=== PATIENT | male | born 1985 | race Caucasian/White ===

== ENCOUNTER 2022-01-21 09:19 | Outpatient (RCR) | payer OTHER, SELFPAY ==
[2022-01-21 09:36] VITALS: BMI 36.5
[2022-01-21 10:36] VITALS: BMI 36.5
== END 2022-04-07 11:19 | disposition home or self-care (01) ==
LOC: ANHDMC 09:19
PROVIDERS: PCP Family Medicine; Visit Provider Nurse Practitioner Gerontology
DX: E66.9 Obesity, unspecified (principal); Z71.3 Dietary counseling and surveillance
CPT/HCPCS: 97802

== ENCOUNTER 2022-02-26 10:55 | Outpatient (CLI) | payer OTHER, SELFPAY ==
--- NOTE | ~2022-02-26 | CT_ITS ---
EXAMINATION: CTA chest PE protocol DATE: 02/26/2022 11:30 INDICATION: Dyspnea on exertion. Shortness of breath since 2020 (Covid). TECHNIQUE: Computed tomography angiography (CTA) of the chest was performed with 100 mL Omnipaque-350 intravenous contrast timed to evaluate the pulmonary arteries. Coronal maximum intensity projection 3D-reconstructions were created by the technologist. Automated exposure control and iterative reconst ruction technique were employed. Exam dose: 1113.20 mGy-cm total exam DLP. COMPARISON: 04/04/2018 PA and lateral chest FINDINGS: There is diagnostic contrast enhancement of the pulmonary arteries and no evidence of pulmo nary embolism. No thoracic aortic aneurysm or dissection is evident. Normal heart size. No hilar or mediastinal mass lesion or lymphadenopathy. No pulmonary infiltrate or consolidation or pulmonary mass lesion. Approximately 9 x 12 mm probable right adrenal adenoma. Possible pinpoint nonobstructing left mid to lower pole renal calculus. No suspicious osteolytic or osteoblastic lesions. IMPRESSION: No evidence of pulmonary embolism Reviewed, dictated and finalized at [facility]. Reviewed, dictated and finalized at [facility].
[2022-02-26 11:19] LABS: Estimated Glomerular Filt Rate > 60
--- NOTE | 2022-02-26 11:29 | ECHO_ITS ---
Patient Info Name: Luke Nazario Age: 37 years : 1985 Gender: Male Ht: 76 in Wt: 290 lbs BSA: 2.70 m2 HR: 55 bpm BP: 159 / 105 mmHg Technical Quality: Good Exam Date: 02/26/2022 11:54 AM Exam Location: [facility] Pul[facility] Patient Status: Outpatient Admit Date: 02/26/2022 Staff Ordering Physician: Rodrigo Castelan MD Tax Map Technician: Greg Martin RDCS Attending Provider: Rodrigo Castelan MD Referring Physician: Flip PEREZ; Exam Type: CA echo doppler color flow Study Info Indications R06.02 - Shortness of breath Complete two-dimensional, color flow and Doppler transthoracic echocardiogram is performed. Summary 1. Complete two-dimensional, color flow and Doppler transthoracic echocardiogram is performed. 2. Left ventricular chamber dimension is normal. 3. Left ventricular systolic function is normal, estimated at 60-65%. 4. The left ventricular diastolic function is normal. 5. E/e' 6 is not elevated. 6. Left atrial chamber dimension is mildly enlarged. 7. There is trace mitral valve regurgitation. Left Ventricle E/e' 6 is not elevated. Left ventricular chamber dimension is normal. Left ventricular systolic function is normal, estimated at 60-65%. The left ventricular diastolic function is normal. Right Ventricle Right ventricular systolic function is normal and with normal TAPSE 2.3 cm. Right ventricular chamber dimension is normal. Left Atria Left atrial chamber dimension is mildly enlarged. Right Atria Right atrial chamber dimension is normal. Aortic Valve The aortic valve is trileaflet. There is no aortic valve stenosis. There is no aortic valve regurgitation. Pulmonic Valve There is no pulmonic regurgitation. Mitral Valve There is no mitral valve stenosis. There is trace mitral valve regurgitation. Tricuspid Valve There is no tricuspid valve regurgitation. Pericardium/Pleural There is no pericardial effusion. Inferior Vena Cava Inferior vena cava is not well visualized. Aorta The aortic root size at the sinus of Valsalva is normal. Left Ventricular Outflow Tract Name Value Normal LVOT 2D LVOT Diameter 2.4 cm LVOT Doppler LVOT Peak Gradient 3 mmHg LVOT Mean Gradient 2 mmHg LVOT VTI 22 cm LVOT VTI/AV VTI Ratio 1.1 LVOT Stroke Volume 97 ml LVOT CO 5.3 l/min LVOT CI 2.0 l/min/m2 Mitral Valve Name Value Normal MV Doppler MV Peak Gradient 2 mmHg MV Mean Gradient 1 mmHg MV Decel Brooke 346 cm/s2 MV PHT 57 ms MV Area (PHT)
--- NOTE | 2022-02-26 16:42 | WPDSIXMINUTE ---
Six Minute Walk Procedure Procedure Performed Pulmonary Stress Test (6 min walk) Six Minute Walk Six Minute Walk: This is a 6 minute walk test. The test was performed and interpreted in accordance with the 2014 ERS/ATS task force guidelines. Findings: The patient's resting room air oxygen saturation measured by pulse oximetry was 97% and heart rate was 79 bpm. Patient ambulated for 585 meters and oxygen saturation remained 96 to 98%. Heart rate at the end of the study was 111 bpm. The patient did not qualify for supplemental oxygen at rest or with ambulation. There are no prior studies for comparison.
--- NOTE | 2022-02-26 16:43 | WPDPFTINT ---
PFT Procedure Performed PFT Procedure Performed Spirometry with Pre/Post Bronchodilator Plethysmography (Lung Vol) Diffusing Cap (DLCO) Flow Vol Loop PFT Interpretation This is a pulmonary function test with pre and post-bronchodilator spirometry, plethysmography and diffusing capacity. The test was performed and results interpreted in accordance with the 2019 and 2005 ATS/ERS Task Force guidelines respectively using the Global Lung Function Initiative-2012 reference equations. Patient demonstrated good effort and cooperation. Reproducibility criteria were met. The quality of the pre bronchodilator spirometry maneuver was Grade A and post bronchodilator spirometry maneuver was Grade A. Findings: Spirometry: The contour the inspiratory and expiratory flow tracing are normal. The pre bronchodilator FVC is 6.32 L, 97% predicted. The pre bronchodilator FEV1 is 4.70 L, 90% predicted. The pre bronchodilator FEV1: FVC ratio 74%. The post bronchodilator FVC is 6.46 L, representing a 2% increase. The post bronchodilator FEV1 is 4.90 L, representing a 4% increase. The post bronchodilator FEV1: FVC ratio is 76%. Plethysmography: The total lung capacity is 9.71 L 1, 120% predicted. The functional residual capacity is 4.93 L, 119% predicted. The residual volume is 3.39 L, 165% predicted. Diffusing capacity: Diffusing capacity unadjusted for hemoglobin and carboxyhemoglobin is 38.8, 106% predicted. The diffusing capacity adjusted for alveolar volume is 5.66, 121% predicted. Impression: The spirometry is normal without evidence of an obstructive abnormality. There is no significant improvement after inhaling a single dose of albuterol. The total lung capacity and residual volume are increased consistent with hyperinflation. The diffusing capacity is normal. There are no prior studies for comparison
== END 2022-02-26 10:56 | disposition home or self-care (01) ==
PROVIDERS: PCP Family Medicine; Visit Provider Internal Medicine Pulmonary Disease
DX: R06.09 Other forms of dyspnea (principal); R06.02 Shortness of breath
CPT/HCPCS: 71275; 93306; 94060; 94618; 94726; 94729; Q9967